=== PATIENT | female | born 1930 | race Caucasian/White ===

== ENCOUNTER 2016-12-13 04:34 | Emergency (ER) | payer BC, MEDICARE ==
[~2016-12-13 04:34] MED LIST: ASPI1TAB69 PO; CALCTAB23 PO; CO Q30CA PO; GLIP5TAB8 PO; LISI2.5T3 PO; OMEP20TA PO; PATA0.2S EACH EYE; ROSU5 PO; TRIA37.53 PO; ZETI10TA5 PO
[2016-12-13 04:37] VITALS: BP 190/82; PULSE 84; RESP 16; TEMP 98.1; O2SAT 99
[2016-12-13] MEDS ORDERED: CALC1TAB12 PO (04:49)
[2016-12-13] MEDS ORDERED: WELC625T2 PO (04:49)
[2016-12-13] MEDS ORDERED: CO Q30CA3 (04:49)
[2016-12-13 05:51] VITALS: O2SAT 100
[2016-12-13 06:00] LABS: AUTOMATED NEUTROPHIL # 4.9 TH/MM3 (1.8-7.7); BASOPHIL % 0.5 % (0.0-2.0); EOSINOPHIL # 0.1 TH/MM3 (0-0.4); HEMATOCRIT 34.8 % (35.0-46.0); HEMO FLAGS DIFF FINAL; LYMPH % 16.1 % (9.0-44.0); LYMPHOCYTE # 1.1 TH/MM3 (1.0-4.8); MEAN CELL VOLUME 91.6 FL (80.0-100.0); MEAN CORPUSCULAR HEMOGLOBIN 31.1 PG (27.0-34.0); MEAN CORPUSCULAR HGB CONC 33.9 % (32.0-36.0); MONO % 9.6 % (0.0-8.0); NEUT % 71.8 % (16.0-70.0); PLATELET COUNT 242 TH/MM3 (150-450); RED CELL DISTRIBUTION WIDTH 14.1 % (11.6-17.2); WHITE BLOOD COUNT 6.8 TH/MM3 (4.0-11.0)
--- NOTE | 2016-12-13 06:03 | RADRPT ---
EXAM DATE/TIME: 12/13/2016 05:26 [place] COMPARISON: No previous studies available for comparison. INDICATIONS : Left hand pain and swelling from unknown injury. MEDICAL HISTORY : None. SURGICAL HISTORY : None. ENCOUNTER: Initial ACUITY: 1 day PAIN SCORE: 4/10 LOCATION: Left hand. FINDINGS: There is no evidence of acute fracture. Bony mineralization is normal. There is soft tissue swelling with calcification at the level of the proximal phalangeal joint of the third digit. There is calcifi cation of the triangular fibrocartilage. No erosions are identified. CONCLUSION: 1. Osteoarthritis as above Rajesh Huitron MD on December 13, 2016 at 6:00 Board Certified Radiologist. This report was verified electronically.
[2016-12-13 06:14] LABS: ANION GAP 9 MEQ/L (5-15); AST (GOT) 18 U/L (15-37); BICARBONATE 25.1 MEQ/L (21.0-32.0); BLOOD UREA NITROGEN 26 MG/DL (7-18); CHLORIDE 104 MEQ/L (98-107); GLOMERULAR FILTRATION RATE 36 ML/MIN (>89); POTASSIUM 3.6 MEQ/L (3.5-5.1); SODIUM (NA) 138 MEQ/L (136-145)
[2016-12-13 06:16] LABS: ALT (GPT) 22 U/L (10-53); URIC ACID 5.7 MG/DL (2.6-6.0)
[2016-12-13 06:18] LABS: ALKALINE PHOSPHATASE 61 U/L (45-117); TOTAL BILIRUBIN ADULT 0.4 MG/DL (0.2-1.0)
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
[2016-12-13] MEDS ORDERED: ACETAMINOPHEN 325 MG TAB PO ONE (07:15)
[2016-12-13] MEDS ORDERED: CLIN1CAP6 PO (07:32)
== END 2016-12-13 09:08 | disposition home or self-care (01) ==
LOC: NEPC 04:34
DX: L03.113 Cellulitis of right upper limb (principal); M79.602 Pain in left arm; I10 Essential (primary) hypertension; E11.9 Type 2 diabetes mellitus without complications; Z79.84 Long term (current) use of oral hypoglycemic drugs
CPT/HCPCS: 73130; 80053; 84550; 85025; 86140; 99284